=== PATIENT | female | born 1975 | race Caucasian/White ===

== ENCOUNTER → 2016-05-18 | Outpatient (CLI) | payer OTHER ==
[~2016-05-18] MED LIST: LEVO75TA5 PO; MULT-506 PO; OMEP20CA59 PO; SERT-234 PO; VITAMIN D3 PO
[2016-05-18 15:53] LABS: THYROID STIMULATING HORMONE 1.83 uIu/ml (0.300-4.500)
== END | disposition home or self-care (01) ==
LOC: C.LAB1850 14:29
PROVIDERS: ATTEND Family Medicine
DX: E03.9 Hypothyroidism, unspecified (principal); E55.9 Vitamin D deficiency, unspecified

== ENCOUNTER → 2016-08-09 | Outpatient (CLI) | payer OTHER | END | disposition home or self-care (01) | LOC: C.LABPVFM 07:56 | PROVIDERS: ATTEND Nurse Practitioner Family | DX: R39.9 Unspecified symptoms and signs involving the genitourinary system (principal) ==

== ENCOUNTER → 2016-09-20 | Outpatient (CLI) | payer BC, OTHER ==
[2016-09-20 13:20] LABS: BLOOD UREA NITROGEN 12 mg/dl (7-18); CREATININE 0.92 mg/dl (0.60-1.20); GLUCOSE 98 mg/dl (70-99)
[2016-09-20 13:21] LABS: ALT/SGPT 45 U/L (12-78); CARBON DIOXIDE 24 mmol/L (21-32); CHLORIDE 107 mmol/L (98-107); SODIUM 141 mmol/L (136-145)
[2016-09-20 13:23] LABS: CALCIUM 8.4 mg/dl (8.5-10.1)
[2016-09-20 13:31] LABS: ALKALINE PHOSPHATASE 84 U/L (45-117); AST/SGOT 25 U/L (15-37)
== END | disposition home or self-care (01) ==
LOC: C.LABPVFM 08:04
PROVIDERS: ATTEND Family Medicine
DX: E55.9 Vitamin D deficiency, unspecified (principal); E03.9 Hypothyroidism, unspecified

== ENCOUNTER → 2016-10-15 | Outpatient (CLI) | payer OTHER ==
[2016-10-15 12:40] LABS: ESTIMATED AVERAGE GLUCOSE 108 mg/dl; HA1C FLAG Normal (Normal)
== END | disposition home or self-care (01) ==
LOC: C.LAB1850 10:37
PROVIDERS: ATTEND Family Medicine
DX: N91.2 Amenorrhea, unspecified (principal); R73.02 Impaired glucose tolerance (oral)

== ENCOUNTER → 2016-11-16 | Outpatient (CLI) | payer OTHER ==
[2016-11-17 16:33] LABS: BORDETELLA PERTUSSIS SOURCE Swab
== END | disposition home or self-care (01) ==
LOC: C.LABPVFM 15:35
PROVIDERS: ATTEND Family Medicine
DX: R05 Cough (principal); Z20.818 Contact with and (suspected) exposure to other bacterial communicable diseases

== ENCOUNTER → 2016-11-23 | Outpatient (CLI) | payer OTHER ==
--- NOTE | 2016-11-23 10:54 | DIAGNOSTIC IMAGING REPORT ---
CHEST 2 VIEWS ROUTINE HISTORY: 41 years-old Female Lower resp. tract infection COMPARISON: None available TECHNIQUE: Frontal and lateral views of the chest FINDINGS: Cardiac silhouette is upper limits of normal. There is no pneumothorax or pleural effusion. Hazy subsegmental left lower lobe opacity is noted, best seen on the lateral view. Bones are grossly intact. 4 mm density near the left greater tuberosity of the humerus suggest calcific tendinosis of the rotator cuff. IMPRESSION: Subsegmental left lower lobe opacity is noted which may reflect atelectasis or developing pneumonia. The above report was generated using voice recognition software. It may contain grammatical, syntax or spelling errors. Electronically signed by: Reddy Diaz M.D. 11/23/2016 10:52 AM Dictated Date/Time: 11/23/2016 10:50 AM
== END | disposition home or self-care (01) ==
LOC: C.RADPV 10:35
PROVIDERS: ATTEND Family Medicine
DX: J22 Unspecified acute lower respiratory infection (principal)

== ENCOUNTER → 2017-01-07 | Outpatient (CLI) | payer OTHER | END | disposition home or self-care (01) | LOC: C.LABPVFM 16:56 | PROVIDERS: ATTEND Nurse Practitioner Family | DX: R39.9 Unspecified symptoms and signs involving the genitourinary system (principal) ==

== ENCOUNTER → 2017-01-26 | Outpatient (CLI) | payer OTHER ==
--- NOTE | 2017-01-27 14:32 | MAMMOGRAPHY REPORT ---
BILATERAL DIGITAL DIAGNOSTIC MAMMOGRAM TOMOSYNTHESIS WITH CAD AND BILATERAL ULTRASOUND: 01/26/2017 CLINICAL HISTORY: 41-year-old woman presents for bilateral screening mammography and also repeat bila teral breast ultrasound to reassess probably benign complicated cysts and solid versus cystic masses seen on prior breast ultrasound. Family history of breast cancer. TECHNIQUE: Bilateral breast tomosynthesis in addition to standard 2D mammography was performed. Curre nt study was also evaluated with a Computer Aided Detection (CAD) system. COMPARISON: Comparison is made to exams dated: 02/23/2016 ultrasound and 01/29/2016 mammogram - [facility]. BREAST COMPOSITION: The tissue of both breasts is heterogeneously dense, which may obscure small mas ses. FINDINGS: The parenchymal pattern is similar to prior mammograms. There is stable nodularity through out the breasts. No suspicious spiculated or irregular mass, focal area of architectural distortion, new asymmetry or new suspicious microcalcifications are seen bilaterally. Real-time high-resolution sonographic evaluation was performed throughout each breast and both axilla e. There is no suspicious right or left axillary lymphadenopathy. A few morphologically normal lymp h nodes within cortices are identified. In the 12:00 left breast periareolar region, a benign anecho ic simple cyst is again identified measuring 6.5 mm. The hypoechoic to isoechoic round subcentimeter masses no longer identified in the 1:00 left breast, 3 cm from the nipple, confirming benignity. In the 2:30 left breast, 8 cm from the nipple, 2 cysts are identified. The larger measuring 7.9 mm as a simple cyst and the smaller is a complicated cyst with internal nonvascular septations measuring 6. 2 mm. A previously observed solid versus cystic mass in the 2:00 periareolar left breast has signifi cantly decreased in size, currently measuring 2.8 mm, confirming benignity. A cyst with multiple int ernal nonvascular septations is again seen in the 6:00 left breast, 2 cm from the nipple, measuring 1 0.2 x 4.9 x 11.3 mm. Another similar-appearing predominantly anechoic cyst with internal nonvascular septations in the 8:00 left breast, 5 cm from the nipple measures 12.8 x 4.6 x 8.6 mm. Neither of t hese are significantly changed in size compared to the prior ultrasound. The previously observed cys t with septations in the 11:00 left breast, 2 cm from the nipple has decreased in size, currently ben suring 7.2 mm. In the right 12:00 axis, 2 cm from the nipple, there is a tiny oval parallel hypoechoic solid versus cystic mass measuring 4.2 mm. In the 4:00 periareolar right breast, 8 cyst with thin internal nonvas cular septations measures 10.8 x 3.4 x 6.9 mm. Numerous anechoic cysts with thin internal septations are now seen in the 7:00 right breast, 4 cm from the nipple. There is an isoechoic round circumscri bed mass and a second similar appearing small mass in the 11:00 periareolar right breast. The first measures 3.1 x 2.7 x 2.8 mm, and the second measures 2.7 mm. The slightly larger isoechoic mass is u nchanged in size and appearance but the slightly smaller mass is newly visualized. Both have a benig n appearance. Another predominantly simple cyst within internal septation is seen in the 10:00 right breast, 2 cm from the nipple, measuring 6.9 x 3.9 x 7.2 mm. Additional scanning was performed in the areas of lumpiness within both axillae, and no discrete caroline d or cystic masses are seen bilaterally in the areas of palpable concern. IMPRESSION: ACR-BI-RADS CATEGORY 3: PROBABLY BENIGN, ULTRASOUND ACR-BI-RADS CATEGORY 3: PROBABLY NICHOLAS IGN 1. Stable bilateral mammograms, without mammographic evidence of malignancy. 2. Fibrocystic changes are again evident in both breasts on whole breast screening ultrasound. Many indeterminate solid versus cystic benign appearing masses in both breasts have decreased in size com pared to the prior ultrasound, confirming benignity. A few others are newly visualized. Another 12 month follow-up targeted ultrasound is recommended in the 7:00 and 11:00 right breast to ensure longe r stability of indeterminate isoechoic solid versus cystic masses. These results and recommendations were discussed with the patient at the time of the exam. She tenta tively scheduled a follow-up appointment prior to leaving our department. Approximately 10% of breast cancers are not detected with mammography. A negative mammographic report should not delay biopsy if a clinically suggestive mass is present. Isabella Cortes M.D. ay/:01/26/2017 16:58:18 Digital Engineer: Katiana HOOD(Vinicio)(Dionne), [facility] letter sent: Follow Up Recommended 3 BI-RADS Code: ACR-BI-RADS Category 3: Probably Benign Ultrasound BI-RADS: ACR-BI-RADS Category 3: Pr obably Benign
== END | disposition home or self-care (01) ==
LOC: C.MAMM 10:55
PROVIDERS: ATTEND Family Medicine
DX: N63.0 Unspecified lump in unspecified breast (principal); Z80.3 Family history of malignant neoplasm of breast; N60.01 Solitary cyst of right breast; N60.02 Solitary cyst of left breast

== ENCOUNTER → 2017-01-31 | Outpatient (CLI) | payer OTHER ==
[2017-01-31 13:00] LABS: ALT/SGPT 59 U/L (12-78); BLOOD UREA NITROGEN 10 mg/dl (7-18); BUN/CREATININE RATIO 11.2 (10-20); CALCIUM 8.9 mg/dl (8.5-10.1); CARBON DIOXIDE 24 mmol/L (21-32); CHLORIDE 105 mmol/L (98-107); CREATININE 0.88 mg/dl (0.60-1.20); GLUCOSE 122 mg/dl (70-99); POTASSIUM 3.8 mmol/L (3.5-5.1); SODIUM 138 mmol/L (136-145)
[2017-01-31 13:11] LABS: ALB/GLOB RATIO 0.9 (0.9-2); ALKALINE PHOSPHATASE 89 U/L (45-117); AST/SGOT 28 U/L (15-37); THYROID STIMULATING HORMONE 0.137 uIu/ml (0.300-4.500)
== END | disposition home or self-care (01) ==
LOC: C.LABPVFM 07:53
PROVIDERS: ATTEND Family Medicine
DX: E03.9 Hypothyroidism, unspecified (principal); K76.0 Fatty (change of) liver, not elsewhere classified; R73.02 Impaired glucose tolerance (oral); E55.9 Vitamin D deficiency, unspecified

== ENCOUNTER 2017-05-27 22:50 | Observation (INO) | payer OTHER ==
[~2017-05-27] VITALS: Ht 160 cm; Wt 129.6 kg
[2017-05-27] MEDS ORDERED: ONDANSETRON INJ 2 MG/ML 2 ML VIAL IV STA (23:04)
[2017-05-27] MEDS ORDERED: SODIUM CHLORIDE 0.9% 1000ML 1,000 ML IV STA (23:04)
[2017-05-27] MEDS ORDERED: MoRPHine SULFATE 4 MG/ML 1 ML CARP\\VIAL IV STA (23:04)
[2017-05-27] MEDS ORDERED: LEVO100T7 PO (23:08)
[2017-05-27] MEDS ORDERED: CHOL100027 PO (23:09)
[2017-05-27] MEDS ORDERED: GLC/500 PO (23:09)
[2017-05-27] MEDS ORDERED: OPTIRAY 320 IV PRN (23:15)
[2017-05-27 23:37] LABS: BASO % 0.1 %; BASO ABS # 0.01 K/uL (0-0.2); EOS % 0.4 %; EOS ABS # 0.05 K/uL (0-0.5); HEMATOCRIT 38.1 % (37-47); HEMOGLOBIN 13.3 g/dL (12.0-16.0); IG# 0.05 K/uL (0.00-0.02); LYMPH % 19.6 %; LYMPH ABS # 2.44 K/uL (1.2-3.4); MEAN CELL VOLUME 88.6 fL (80-100); MEAN CORPUSCULAR HEMOGLOBIN 30.9 pg (25-34); MEAN CORPUSCULAR HGB CONC 34.9 g/dl (32-36); MEAN PLATELET VOLUME 9.9 fL (7.4-10.4); MONO % 4.8 %; NEUT % 74.7 %; PLATELET COUNT 169 K/uL (130-400); RED CELL DISTRIBUTION WIDTH CV 14.3 % (11.5-14.5); RED CELL DISTRIBUTION WIDTH SD 46.1 fL (36.4-46.3); WHITE BLOOD COUNT 12.45 K/uL (4.8-10.8)
[2017-05-27 23:46] LABS: ISTAT CREATININE 0.7 mg/dl (0.6-1.3); ISTAT IONIZED CALCIUM 1.14 mmol/l (1.12-1.32); ISTAT POTASSIUM 3.9 mEq/L (3.3-5.0)
[2017-05-28] VITALS (14 sets, daily range): BP systolic 95–135; BP diastolic 63–78; PULSE 68–111; TEMP 36.4–38; O2SAT 92–99; Ht 160 cm; Wt 129.6 kg
[2017-05-28 00:01] LABS: ALBUMIN 3.7 gm/dl (3.4-5.0); ALT/SGPT 143 U/L (12-78); AST/SGOT 73 U/L (15-37); BLOOD UREA NITROGEN 12 mg/dl (7-18); CALCIUM 8.8 mg/dl (8.5-10.1); CARBON DIOXIDE 24 mmol/L (21-32); CREATININE 0.86 mg/dl (0.60-1.20); GLUCOSE 126 mg/dl (70-99); LIPASE 114 U/L (73-393); POTASSIUM 3.8 mmol/L (3.5-5.1); SODIUM 137 mmol/L (136-145); TOTAL PROTEIN 7.6 gm/dl (6.4-8.2)
[2017-05-28 00:03] LABS: ALKALINE PHOSPHATASE 89 U/L (45-117)
[2017-05-28] MEDS ORDERED: MoRPHine SULFATE 4 MG/ML 1 ML CARP\\VIAL IV STA (01:01)
[2017-05-28] MEDS ORDERED: SODIUM CHLORIDE 0.9% 1000ML 1,000 ML IV STA (01:01)
[2017-05-28] MEDS ORDERED: CEFOXITIN 2000MG/60 ML D5W IV STA (01:01)
--- NOTE | 2017-05-28 01:08 | EMERGENCY ROOM VISIT NOTE ---
History First contact with patient: 22:55 Chief Complaint: ABDOMINAL PAIN Stated Complaint: UPPER ABDOMINAL PAIN INTO BACK History of Present Illness The patient is a 41 year old female who presents to the Emergency Room with complaints of epigastric pain that radiates to her left upper back after eating a salad today with blue cheese dressing. Pain started around 3:00. Described as aching, ranging in severity 8 out of 10. Nothing makes it better or worse. Patient tried baking soda and try to have a bowel movement with no improvement of symptoms. No history of similar symptoms in the past. Patient denies chest pain, dyspnea, fever, chills, vomiting, diarrhea, urinary symptoms. No diabetes. Review of Systems An 10 system review of systems was completed with positives and pertinent negatives listed in the HPI. Past Medical/Surgical History Anxiety, depression, thyroid disorder, tonsillectomy, adenoidectomy Social History Smoking Status: Never Smoker Drug Use: none Marital Status: Housing Status: lives with family Current/Historical Medications Scheduled Cholecalciferol (Vitamin D 1000 Unit), 1,000 INTER.UNIT PO DAILY Levothyroxine Sodium (Levothyroxine Sodium), 100 MCG PO DAILY Metformin Hcl (Glucophage), 1,000 MG PO BID Multivitamin (Multivitamin), 1 TAB PO QAM Sertraline (Zoloft), 100 MG PO HS Physical Exam Vital Signs Date Time Temp Pulse Resp B/P (MAP) Pulse Ox O2 Delivery O2 Flow Rate FiO2 05/27/17 23:47 88 05/27/17 23:40 94 Room Air 05/27/17 23:38 95 Room Air 05/27/17 22:52 36.8 79 18 162/101 96 Room Air Physical Exam VITALS: Vitals are noted on the nurse's note and reviewed by myself. Vital signs hypertensive GENERAL: Pleasant female, in no acute distress, nondiaphoretic, well-developed well-nourished. SKIN: The skin was without rashes, erythema, edema, or bruising. There is no tenting of the skin. Capillary reflex less than 2 seconds. HEAD: Normocephalic atraumatic. EARS: External auditory canals clear EYES: Pupils equal round and reactive to light and accommodation. Conjunctivae without injection, sclerae without icterus. Extraocular movements intact. NOSE: Patent, turbinates without inflammation or discharge. MOUTH: Mucous membranes moist. Pharynx without erythema or exudate. Uvula midline. Airway patent. Tongue does not deviate. NECK: Supple without nuchal rigidity. No lymphadenopathy. No thyromegaly. Cervical spine is nontender. No JVD. HEART: Regular rate and rhythm without murmurs gallops or rubs. LUNGS: Clear to auscultation bilaterally without wheezes, rales or rhonchi. No dullness to percussion. No retractions or accessory muscle use. ABDOMEN: Positive bowel sounds x 4. Normal tympanic percussion. Soft, protuberant, obese, tender to palpation epigastric region, without masses or organomegaly. No CVA tenderness, no guarding or rebound tenderness. MUSCULOSKELETAL: No muscle atrophy, erythema, or edema noted. NEURO: Patient was alert and oriented to person place and time. No focal neurological deficits. Medical Decision & Procedures Laboratory Results 05/27/17 23:20 Red Blood Count 4.30, Mean Corpuscular Volume 88.6, Mean Corpuscular Hemoglobin 30.9, Mean Corpuscular Hemoglobin Concent 34.9, Mean Platelet Volume 9.9, Neutrophils (%) (Auto) 74.7, Lymphocytes (%) (Auto) 19.6, Monocytes (%) (Auto) 4.8, Eosinophils (%) (Auto) 0.4, Basophils (%) (Auto) 0.1, Neutrophils # (Auto) 9.30, Lymphocytes # (Auto) 2.44, Monocytes # (Auto) 0.60, Eosinophils # (Auto) 0.05, Basophils # (Auto) 0.01 05/27/17 23:20 Test 05/27/17 23:20 05/27/17 23:30 05/27/17 23:32 05/27/17 23:34 White Blood Count 12.45 K/uL (4.8-10.8) Red Blood Count 4.30 M/uL (4.2-5.4) Hemoglobin 13.3 g/dL (12.0-16.0) Hematocrit 38.1 % (37-47) Mean Corpuscular Volume 88.6 fL (80-100) Mean Corpuscular Hemoglobin 30.9 pg (25-34) Mean Corpuscular Hemoglobin Concent 34.9 g/dl (32-36) Platelet Count 169 K/uL (130-400) Mean Platelet Volume 9.9 fL (7.4-10.4) Neutrophils (%) (Auto) 74.7 % Lymphocytes (%) (Auto) 19.6 % Monocytes (%) (Auto) 4.8 % Eosinophils (%) (Auto) 0.4 % Basophils (%) (Auto) 0.1 % Neutrophils # (Auto) 9.30 K/uL (1.4-6.5) Lymphocytes # (Auto) 2.44 K/uL (1.2-3.4) Monocytes # (Auto) 0.60 K/uL (0.11-0.59) Eosinophils # (Auto) 0.05 K/uL (0-0.5) Basophils # (Auto) 0.01 K/uL (0-0.2) RDW Standard Deviation 46.1 fL (36.4-46.3) RDW Coefficient of Variation 14.3 % (11.5-14.5) Immature Granulocyte % (Auto) 0.4 % Immature Granulocyte # (Auto) 0.05 K/uL (0.00-0.02) Est Creatinine Clear Calc Drug Dose 114.3 ml/min Estimated GFR () 97.9 Estimated GFR (Non- 84.5 BUN/Creatinine Ratio 14.4 (10-20) Calcium Level 8.8 mg/dl (8.5-10.1) Total Bilirubin 0.4 mg/dl (0.2-1) Direct Bilirubin 0.1 mg/dl (0-0.2) Aspartate Amino Transf (AST/SGOT) 73 U/L (15-37) Alanine Aminotransferase (ALT/SGPT) 143 U/L (12-78) Alkaline Phosphatase 89 U/L (45-117) Troponin I < 0.015 ng/ml (0-0.045) Total Protein 7.6 gm/dl (6.4-8.2) Albumin 3.7 gm/dl (3.4-5.0) Lipase 114 U/L (73-393) Bedside Hemoglobin 12.9 g/dl (12.0-16.0) Bedside Hematocrit 38 % (37-47) Bedside Sodium 140 mEq/L (135-144) Bedside Potassium 3.9 mEq/L (3.3-5.0) Bedside Chloride 102 mEq/L (101-112) Bedside Total CO2 24 mEq/l (24-31) Anion Gap 19.0 mmol/L (16-25) Bedside Blood Urea Nitrogen 13 mg/dl (7-18) Bedside Creatinine 0.7 mg/dl (0.6-1.3) Bedside Glucose (other) 130 mg/dl (70-99) Bedside Ionized Calcium (Nathan) 1.14 mmol/l (1.12-1.32) Bedside Troponin I < 0.030 ng/ml (0-0.045) Bedside Lactic Acid Venous 1.96 mmol/L (0.90-1.70) Medications Administered Medications (Trade) Dose Ordered Sig/Samy Route Start Time Stop Time Status Last Admin Dose Admin Morphine Sulfate (MoRPHine SULFATE INJ) 4 mg NOW STAT IV 05/27/17 23:04 05/27/17 23:07 DC 05/27/17 23:34 4 MG Ondansetron HCl (Zofran Inj) 4 mg NOW STAT IV 05/27/17 23:04 05/27/17 23:07 DC 05/27/17 23:33 4 MG Sodium Chloride 1,000 ml @ 999 mls/hr Q1H1M STAT IV 05/27/17 23:04 05/28/17 00:04 DC 05/27/17 23:33 999 MLS/HR ED Course Prior records/ancillary studies reviewed. Triage Nursing notes reviewed. Additional history obtained from family. The patient's history was concerning for abdominal pain. Differential diagnosis: Etiologies such as appendicitis, diverticulitis, PUD, biliary pathology, UTI, pancreatitis, obstruction, mesenteric ischemia, aortic pathology, infections, inflammatory bowel disease, renal colic, as well as others were entertained. Physical examination findings: As above. ER treatment provided: Morphine, Zofran On reassessment the patient felt better. Diagnostics interpreted by me: ECG: Normal sinus, normal intervals, no acute ST-T wave changes, rate of 80. Impression normal sinus rhythm interpreted by myself The labs revealed leukocytosis. Hyperglycemia without DKA Imaging studies: Chest x-ray with no acute consolidation, pneumothorax free of my interpretation CT concerning for appendicitis. Patient was reevaluated and now had pain in the right lower quadrant. Patient originally had epigastric pain. It Then localized to the periumbilical right lower quadrant region. Consultation: A consultation was placed with the surgeon, Dr. Hudson. The case was discussed and diagnostics were reviewed. The patient was admitted to her service. She gave admission orders to the nurse, John. Exam and history seem consistent with acute appendicitis. Patient was placed n.p.o. She was started on antibiotics. Maintenance fluids are written for. Patient was neurovascularly and neurologically intact. She was well-appearing. She was afebrile nontoxic. By the evaluation outlined above emergent etiologies such as diverticulitis, PUD , biliary pathology, UTI, pancreatitis, obstruction, mesenteric ischemia, aortic pathology, inflammatory bowel disease, renal colic, as well as others were deemed relatively unlikely. The pt informed about the findings as listed above. All questions were answered and pleased with the treatment. Case reviewed with my attending. The chart was completed utilizing [employer] Speech voice recognition software. Grammatical errors, random word insertions, pronoun errors, and incomplete sentences are an occassional consequence of this system due to software limitations, ambient noise, and hardware issues. Any formal questions or concerns about the content, text, or information contained within the body of this dictation should be directly addressed to the physician public relations assistant for clarification. Medical Decision As above Medication Reconcilliation Current Medication List: was personally reviewed by me Blood Pressure Screening Patient's blood pressure: Elevated blood pressure Blood pressure disposition: Elevated BP felt to be situational Impression Primary Impression: Appendicitis Departure Information Dispostion Being Evaluated By Surgeon Condition GOOD Referrals Larry Wilcox M.D. (PCP) Patient Instructions My [facility] Problem Qualifiers Primary Impression: Appendicitis Appendicitis type: acute appendicitis Acute appendicitis type: with localized peritonitis Qualified Codes: K35.3 - Acute appendicitis with localized peritonitis
[2017-05-28] MEDS ORDERED: CEFOXITIN IV 2,000 MG in DEXTROSE 5% 50ML 50 ML IV STA (01:10)
[2017-05-28] MEDS ORDERED: NURSING VERBAL MED ORDER ONE ×2 (01:15→08:00)
[2017-05-28] MEDS ORDERED: ONDANSETRON INJ 2 MG/ML 2 ML VIAL IV PRN ×2 (03:00→11:30)
[2017-05-28] MEDS: LACTATED RINGER'S 1000ML 1,000 ML IV SCH ×3 (03:15→22:09)
[2017-05-28] MEDS: MoRPHine SULFATE 2 MG/ML CARP IV PRN ×2 (03:23→05:54)
[2017-05-28] MEDS ORDERED: IV FLUIDS COMPLETED PRN (04:15)
--- NOTE | 2017-05-28 06:47 | DIAGNOSTIC IMAGING REPORT ---
CHEST ONE VIEW PORTABLE CLINICAL HISTORY: CHEST PAIN COMPARISON STUDY: Chest radiograph November 23, 2016. FINDINGS: There is mild cardiomegaly. There is pulmonary vascular congestion without overt pulmonary edema. No pneumothorax or pleural effusion is noted. There is no consolidation. IMPRESSION: Mild cardiomegaly with pulmonary vascular congestion. No overt pulmonary edema. Electronically signed by: Edy Lanier M.D. 05/28/2017 6:45 AM Dictated Date/Time: 05/28/2017 6:44 AM
--- NOTE | 2017-05-28 07:41 | DIAGNOSTIC IMAGING REPORT ---
CT OF THE ABDOMEN AND PELVIS WITH CONTRAST CLINICAL HISTORY: Severe epigastric pain. COMPARISON STUDY: Abdominal ultrasound December 17, 2014. TECHNIQUE: Following IV administration of 119 mL of Optiray-320, axial images of the abdomen and pelvis were obtained from the lung bases to the proximal femurs. Images were reviewed in the axial, sagittal, and coronal planes. IV contrast was administered without complication. A dose lowering technique was utilized adhering to the principles of ALARA. CT DOSE: 1991.94 mGy.cm FINDINGS: Fatty infiltration of the liver is noted. There is borderline splenomegaly. The adrenal glands, kidneys and pancreas are normal. There is no bowel obstruction. There is a 1.4 cm appendicolith. The appendix is dilated, measuring 1.5 cm in caliber. There is mild periappendiceal infiltration. There is no periappendiceal abscess. There is no free air. There is no lymphadenopathy. Pelvic calcifications reflect phlebolith. IMPRESSION: 1. Findings consistent with acute appendicitis. Appendicolith with moderate appendiceal dilatation and minimal periappendiceal infiltration. 2. Fatty infiltration of the liver. Electronically signed by: Edy Lanier M.D. 05/28/2017 7:39 AM Dictated Date/Time: 05/28/2017 7:36 AM
--- NOTE | 2017-05-28 08:01 | History and Physical ---
History & Physical Date & Time of Service: May 28, 2017 at 07:55 Chief Complaint: Appendicitis Primary Care Physician: Larry Wilcox M.D. History of Present Illness Source: patient 41 yr old woman with BMI 50.6 who presents to ER complaining of abdominal pain which started Tuesday afternoon after eating salad with blue cheese. Pain was initially epigastric, has now migrated to right lower quadrant, 8/10 in severity , radiates throughout abdomen, worse with movement, minimal relief after morphine, associated with nausea and dry heaves. Last meal was 3 pm Tuesday. No prior similar episodes. No fevers now but did have some fevers/ chills/ cough a few weeks ago around the time of . Was treated with cough medicine at that time. Past Medical/Surgical History anxiety, depression, thyroid issues s/p C sxn, tonsillectomy and adenoidectomy Family History nothing significant, no early heart disease, no diabetes Social History Smoking Status: Never Smoker Drug Use: none Marital Status: Multi-Drug Resistant Organisms History of MDRO: No Allergies Coded Allergies: Sulfa Drugs (Verified Allergy, Unknown, 05/27/17) Home Medications Scheduled Cholecalciferol (Vitamin D 1000 Unit), 1,000 INTER.UNIT PO DAILY Levothyroxine Sodium (Levothyroxine Sodium), 100 MCG PO DAILY Metformin Hcl (Glucophage), 1,000 MG PO BID Multivitamin (Multivitamin), 1 TAB PO QAM Sertraline (Zoloft), 100 MG PO HS Review of Systems Constitutional: + fever, + chills (around early May) Eyes: No problem reported ENT: No problem reported Respiratory: No problem reported Cardiovascular: No problem reported Abdomen: + pain, + nausea Musculoskeletal: No problem reported Genitourinary - Female: No problem reported Neurologic: No problem reported Psychiatric: No problem reported Endocrine: No problem reported Hematologic / Lymphatic: No problem reported Integumentary: No problem reported Allergic / Immunologic: No problem reported Physical Exam Vital Signs Date Time Temp Pulse Resp B/P (MAP) Pulse Ox O2 Delivery O2 Flow Rate FiO2 05/28/17 07:08 36.9 98 17 132/78 (96) 94 Room Air 05/28/17 02:40 Room Air 05/28/17 02:30 36.9 68 18 130/73 (92) 99 Room Air 05/28/17 02:25 36.8 97 18 63 93 05/28/17 02:12 97 / 93 Room Air 05/28/17 02:10 36.8 72 18 / Room Air 05/27/17 23:47 88 05/27/17 23:40 94 Room Air 05/27/17 23:38 95 Room Air 05/27/17 22:52 36.8 79 18 162/101 96 Room Air General Appearance: WD/WN, no apparent distress Head: normocephalic, atraumatic Eyes: normal inspection, PERRL ENT: hearing grossly normal Neck: supple, trachea midline Respiratory/Chest: lungs clear, normal breath sounds, no respiratory distress Cardiovascular: regular rate, rhythm, no murmur Abdomen/GI: normal bowel sounds, soft, + tenderness (diffuse but worse in right lower quadrant) Back: normal inspection Extremities/Musculoskelatal: normal inspection, no pedal edema Neurologic/Psych: alert, normal mood/affect, oriented x 3 Skin: normal color, warm/dry Diagnostics Laboratory Results Results Past 24 Hours Test 05/27/17 23:20 05/27/17 23:30 05/27/17 23:32 05/27/17 23:34 Range/Units White Blood Count 12.45 4.8-10.8 K/uL Red Blood Count 4.30 4.2-5.4 M/uL Hemoglobin 13.3 12.0-16.0 g/dL Hematocrit 38.1 37-47 % Mean Corpuscular Volume 88.6 80-100 fL Mean Corpuscular Hemoglobin 30.9 25-34 pg Mean Corpuscular Hemoglobin Concent 34.9 32-36 g/dl Platelet Count 169 130-400 K/uL Mean Platelet Volume 9.9 7.4-10.4 fL Neutrophils (%) (Auto) 74.7 % Lymphocytes (%) (Auto) 19.6 % Monocytes (%) (Auto) 4.8 % Eosinophils (%) (Auto) 0.4 % Basophils (%) (Auto) 0.1 % Neutrophils # (Auto) 9.30 1.4-6.5 K/uL Lymphocytes # (Auto) 2.44 1.2-3.4 K/uL Monocytes # (Auto) 0.60 0.11-0.59 K/uL Eosinophils # (Auto) 0.05 0-0.5 K/uL Basophils # (Auto) 0.01 0-0.2 K/uL RDW Standard Deviation 46.1 36.4-46.3 fL RDW Coefficient of Variation 14.3 11.5-14.5 % Immature Granulocyte % (Auto) 0.4 % Immature Granulocyte # (Auto) 0.05 0.00-0.02 K/uL Sodium Level 137 136-145 mmol/L Potassium Level 3.8 3.5-5.1 mmol/L Chloride Level 104 98-107 mmol/L Carbon Dioxide Level 24 21-32 mmol/L Anion Gap 9.0 19.0 16-25 mmol/L Blood Urea Nitrogen 12 7-18 mg/dl Creatinine 0.86 0.60-1.20 mg/dl Est Creatinine Clear Calc Drug Dose 114.3 ml/min Estimated GFR () 97.9 Estimated GFR (Non- 84.5 BUN/Creatinine Ratio 14.4 10-20 Random Glucose 126 70-99 mg/dl Calcium Level 8.8 8.5-10.1 mg/dl Total Bilirubin 0.4 0.2-1 mg/dl Direct Bilirubin 0.1 0-0.2 mg/dl Aspartate Amino Transf (AST/SGOT) 73 15-37 U/L Alanine Aminotransferase (ALT/SGPT) 143 12-78 U/L Alkaline Phosphatase 89 45-117 U/L Troponin I < 0.015 0-0.045 ng/ml Total Protein 7.6 6.4-8.2 gm/dl Albumin 3.7 3.4-5.0 gm/dl Lipase 114 73-393 U/L Bedside Hemoglobin 12.9 12.0-16.0 g/dl Bedside Hematocrit 38 37-47 % Bedside Sodium 140 135-144 mEq/L Bedside Potassium 3.9 3.3-5.0 mEq/L Bedside Chloride 102 101-112 mEq/L Bedside Total CO2 24 24-31 mEq/l Bedside Blood Urea Nitrogen 13 7-18 mg/dl Bedside Creatinine 0.7 0.6-1.3 mg/dl Bedside Glucose (other) 130 70-99 mg/dl Bedside Ionized Calcium (Nathan) 1.14 1.12-1.32 mmol/l Bedside Troponin I < 0.030 0-0.045 ng/ml Bedside Lactic Acid Venous 1.96 0.90-1.70 mmol/L Diagnostic Radiology CT scan shows dilated appendix with periappendiceal inflammation and appendicolith c/w acute appendicitis. Impression Assessment and Plan 41 yr old woman with BMI 50.6 and acute appendicitis. Discussed laparoscopic appendectomy with risks of bleeding, infection, conversion to open, postop ileus / abscess, negative appy. Consent signed. For OR today. Advanced Directives Existing Living Will: No Existing Power of Licensed Optician: No VTE Prophylaxis VTE Risk Assessment Done? Y/N: Yes Risk Level: Low
[2017-05-28] MEDS: HYDROmorphone INJ 1 MG/ML SYR IV PRN ×3 (08:34→19:35)
[2017-05-28] MEDS: CEFOXITIN IV 2,000 MG in DEXTROSE 5% 50ML 50 ML IV SCH ×3 (08:34→19:21)
[2017-05-28] MEDS ORDERED: SUCCINYLCHOLINE CHLORIDE 20 MG/ML 10 ML VIAL IV ONE (10:48)
[2017-05-28] MEDS ORDERED: LIDOCAINE HCL 2% 2 ML VIAL (20MG/ML) ONE ×2 (10:49)
[2017-05-28] MEDS ORDERED: PROPOFOL IV EMULSION 10 MG/ML 20 ML VIAL IV ONE (10:49)
[2017-05-28] MEDS ORDERED: PROMETHAZINE HCL INJ 12.5 MG in SODIUM CHLORIDE 0.9% 50ML 50 ML IV PRN (11:30)
[2017-05-28] MEDS ORDERED: EpHEDrine SULFATE INJ 50 MG/ML AMP IV PRN (11:30)
[2017-05-28] MEDS ORDERED: FENTANYL CITRATE INJ 50 MCG/1 ML 2 ML VIAL IV PRN (11:30)
[2017-05-28] MEDS ORDERED: HYDROmorphone INJ 0.5 MG/0.5 ML SYR IV PRN (11:30)
[2017-05-28] MEDS ORDERED: ATROPINE SULFATE 0.1 MG/ML 5ML SYR IV PRN (11:30)
[2017-05-28] MEDS ORDERED: DEXAMETHASONE SOD INJ 4 MG/ML VIAL ONE (11:48)
[2017-05-28] MEDS ORDERED: MIDAZOLAM HCL 1 MG/ML 2ML VIAL ONE (11:48)
[2017-05-28] MEDS ORDERED: FENTANYL CITRATE INJ 50 MCG/1 ML 2 ML VIAL ONE (11:48)
[2017-05-28] MEDS ORDERED: ONDANSETRON INJ 2 MG/ML 2 ML VIAL ONE (11:48)
[2017-05-28] MEDS ORDERED: BUPIVACAINE 0.5 % 5 MG/1 ML MPF 30ML VIAL ONE (12:12)
[2017-05-28] MEDS ORDERED: CEFOXITIN SOD 1 GM VIAL ONE (12:38)
[2017-05-28] MEDS ORDERED: ROCURONIUM BROMIDE 10 MG/ML 5 ML VIAL IV ONE (12:41)
[2017-05-28] MEDS ORDERED: NEOSTIGMINE METHYLSULFATE 5 MG/5 ML SYR ONE (13:01)
[2017-05-28] MEDS ORDERED: GLYCOPYRROLATE INJ 0.2 MG/ML VIAL ONE (13:01)
--- NOTE | 2017-05-28 13:20 | [facility] Operative Report ---
Operative Report Operative Date May 28, 2017. Pre-Operative Diagnosis Acute Appendicitis Post-Operative Diagnosis Acute Appendicitis Procedure(s) Performed Laparoscopic Appendectomy Surgeon Dr. Abi Hudson M.D. Guest Laundry Attendant Surgeon(s) None Estimated Blood Loss 15ML Findings acute appendicitis with dilated appendix and very thickened mesentary Fluids 1000 cc Specimens A. Appendix Drains None Anesthesia Type General Complication(s) none Disposition Recovery Room / PACU Indications 41 year old woman with BMI of 50 who presented with acute appendicitis. Consent signed for lap appendectomy. Description of Procedure The patient was on mefoxin preoperatively. After the placement of SCD's, she underwent the induction of GET. A melo catheter was placed. Her left arm was tucked and her abdomen was prepped and draped. She was placed in trendelenburg. A supraumbilical incision was made and carried down to the fascia which was grasped with priscilla clamps. A veress needle was placed into the peritoneal cavity and tested with the saline drop test. Initial pressure was 9 mm Hg and this was taken to 15 mm Hg. A 5 mm trocar was placed. The gallbladder appeared normal. Two additional trocars were placed - a 5 mm in the left lower quadrant and a 5 mm in the midline pubic area (latter used her C sxn incision). The trocar at the umbilicus was changed to a 12 mm. The appendix was visualized and had significant inflammatory changes and a very thickened mesentary. The base was clear and was divided off the cecum with the purple load of the 45 mm stapler. The appendiceal mesentery was taken with 3 sequential firings of the CARLOS stapler vascular load. There was a small arterial bleeder on the staple line which was clamped, clipped and cauterized. There was evidence of a small hematoma in the remaining mesentery to the appendix. The appendix was placed in an endocatch and removed through the umbilical incision. The area was irrigated and suctioned clear. No further bleeding was noted. The trocars were removed. Pneumoperitoneum was released. 30 cc of 0.5% marcaine was injected as local anesthesia. The fascia of the umbilicus was closed with interrupted 0 vicryl sutures. The skin of all three incisions were closed with running subcuticular 4 -0 vicryl suture. Steristrips and sterile dressing were applied. She was awakened and taken to recovery in stable condition. I attest to the content of the Intraoperative Record and any orders documented therein. Any exceptions are noted below.
--- NOTE | 2017-05-28 13:29 | [facility] Post Operative Brief Note ---
Immediate Operative Summary Operative Date May 28, 2017. Pre-Operative Diagnosis Acute Appendicitis Post-Operative Diagnosis Acute Appendicitis Procedure(s) Performed Laparoscopic Appendectomy Surgeon Dr. Abi Hudson M.D. Counter Clerk [employer] Surgeon(s) None Estimated Blood Loss 15ML Findings Consistent with Post-Op Diagnosis Fluids (cc crystalloids) 1000 cc Specimens A. Appendix Anesthesia Type General Complication(s) none Disposition Accompanied Pt To Recover: yes Disposition: Recovery Room / PACU
[2017-05-28] MEDS ORDERED: OXYC-57 PO (13:32)
[2017-05-28] MEDS ORDERED: AMOX875T PO (13:32)
--- NOTE | 2017-05-28 13:34 | Discharge Instructions ---
Discharge Instructions Date of Service May 28, 2017. Admission Reason for Admission: Appendicitis Discharge Discharge Diagnosis / Problem: s/p laparoscopic appendectomy Discharge Goals Goal(s): Decrease discomfort Activity Recommendations Activity Limitations: resume your previous activity (walking/ stairs OK) Lifting Limitations: no more than 10 pounds (for 2 wks) Exercise/Sports Limitations: gradually increase as tolerated May Resume Sexual Activity: after two weeks Shower/Bathe: tomorrow (remove outer gauze bandages prior to shower) Driving or Machine Use: resume 3 days after discharge (if off of narcotic pain medications) . Current Hospital Diet Patient's current hospital diet: Clear Liquid Diet Discharge Diet Recommended Diet: Regular Diet Procedures Procedures Performed: Laparoscopic Appendectomy Pending Studies Studies pending at discharge: yes List of pending studies: pathology from appendix Medical Emergencies . Who to Call and When: Medical Emergencies: If at any time you feel your situation is an emergency, please call 911 immediately. . Non-Emergent Contact Non-Emergency issues call your: Surgeon ([phone]) Call Non-Emergent contact if: temperature is above 101.5, your pain is not controlled, your pain is worsening, your pain is unusual for you, your pain is concerning you, wound has increased drainage, wound has increased redness, wound has increased pain, you have any medication questions . "Provider Documentation" section prepared by Abi Hudson. . VTE Core Measure Inpt VTE Proph given/why not?: Enoxaparin (Lovenox)SQ, SCD's [place] Drug Monitoring Program Search Results: patient reviewed within database, no issues identified
--- NOTE | 2017-05-28 13:55 | Anesthesiology Progress Note ---
Anesthesia Post Op Note Date & Time May 28, 2017 at 13:55 Vital Signs Pain Intensity: 0 Vital Signs Past 12 Hours Date Time Temp Pulse Resp B/P (MAP) Pulse Ox O2 Delivery O2 Flow Rate FiO2 05/28/17 13:50 93 16 122/84 94 Nasal Cannula 4 05/28/17 13:40 92 16 122/86 93 Oxymask 10 05/28/17 13:30 94 16 122/86 93 Oxymask 10 05/28/17 13:23 36.8 98 16 121/78 92 Oxymask 10 05/28/17 08:00 Room Air 05/28/17 07:08 36.9 98 17 132/78 (96) 94 Room Air 05/28/17 02:40 Room Air 05/28/17 02:30 36.9 68 18 130/73 (92) 99 Room Air 05/28/17 02:25 36.8 97 18 95/63 93 05/28/17 02:12 97 95/63 93 Room Air 05/28/17 02:10 36.8 72 18 95/63 Room Air Notes Mental Status: alert / awake / arousable, participated in evaluation Pt Amnestic to Procedure: Yes Nausea / Vomiting: adequately controlled Pain: adequately controlled Airway Patency, RR, SpO2: stable & adequate BP & HR: stable & adequate Hydration State: stable & adequate Anesthetic Complications: no major complications apparent
[2017-05-28 14:59] LABS: INR 0.9 (0.9-1.1); PTT PATIENT 25.1 SECONDS (21.0-31.0)
[2017-05-28] MEDS: ACETAMINOPHEN 325 MG TAB PO PRN ×2 (17:49→23:35)
[2017-05-28] MEDS: SERTRALINE HCL 100 MG TAB PO SCH (19:21)
[2017-05-29] MEDS: CEFOXITIN IV 2,000 MG in DEXTROSE 5% 50ML 50 ML IV SCH (01:54)
[2017-05-29] MEDS: HYDROmorphone INJ 1 MG/ML SYR IV PRN ×2 (02:13→12:59)
[2017-05-29 03:53] VITALS: BP 105/65; PULSE 90; TEMP 36.8; O2SAT 92
[2017-05-29] MEDS: LEVOTHYROXINE 100 MCG TAB PO SCH (05:19)
[2017-05-29] MEDS: ACETAMINOPHEN 325 MG TAB PO PRN (05:34)
[2017-05-29 07:01] VITALS: BP 108/70; PULSE 89; TEMP 36.6; O2SAT 91
[2017-05-29] MEDS: MULTIVITAMIN TAB PO SCH (08:57)
[2017-05-29] MEDS: CHOLECALCIFEROL 1000 INTER.UNIT TAB PO SCH (08:57)
[2017-05-29] MEDS: METFORMIN HCL 500 MG TAB PO SCH ×2 (08:58→17:20)
[2017-05-29] MEDS: ENOXAPARIN 40 MG/0.4 ML SYR SQ SCH (08:59)
[2017-05-29] MEDS: LACTATED RINGER'S 1000ML 1,000 ML IV SCH ×2 (09:03→19:16)
--- NOTE | 2017-05-29 09:10 | Surgery Progress Note ---
Surgery Progress Note Date of Service May 29, 2017. Subjective Post OP Day: 1 + feeling well, + complaints (pain), + nausea, + diet (liquids), No bowel movement, No flatus, No vomiting Objective Vital Signs: Date Time Temp Pulse Resp B/P (MAP) Pulse Ox O2 Delivery O2 Flow Rate FiO2 05/29/17 07:01 36.6 89 18 108/70 (83) 91 Room Air 05/29/17 03:53 36.8 90 18 105/65 (78) 92 Room Air 05/28/17 23:30 Room Air 05/28/17 22:55 36.9 102 18 125/67 (86) 92 Room Air 05/28/17 20:01 37.4 100 18 125/66 (85) 93 Room Air 05/28/17 19:27 36.8 05/28/17 17:55 37.2 05/28/17 17:42 38.0 05/28/17 17:41 37.1 102 18 131/66 (87) 94 Nasal Cannula 2.0 05/28/17 16:24 36.7 107 18 115/67 (83) 95 Nasal Cannula 2.0 05/28/17 16:00 95 Nasal Cannula 2.0 05/28/17 15:24 36.9 111 18 130/76 (94) 94 Nasal Cannula 2.0 05/28/17 14:50 36.4 95 18 135/75 (95) 97 Nasal Cannula 2.0 05/28/17 14:20 97 Nasal Cannula 2.0 05/28/17 14:20 37.2 101 18 132/78 (96) 97 Nasal Cannula 2.0 05/28/17 14:00 36.4 96 16 124/87 94 Nasal Cannula 4 05/28/17 13:50 93 16 122/84 94 Nasal Cannula 4 05/28/17 13:40 92 16 122/86 93 Oxymask 10 05/28/17 13:30 94 16 122/86 93 Oxymask 10 05/28/17 13:23 36.8 98 16 121/78 92 Oxymask 10 General Appearance: WD/WN, no apparent distress Head: normocephalic, atraumatic Neck: supple, trachea midline Respiratory/Chest: chest non-tender, lungs clear Cardiovascular: regular rate, rhythm, no gallop, no murmur Abdomen: non distended, soft, + abnormal bowel sounds (queit), + tenderness Incision(s): clean, dry, intact Extremities: non-tender, no pedal edema Laboratory Results: Results Past 24 Hours Test 05/28/17 10:40 05/28/17 14:41 Range/Units Urine Test NEG NEG Prothrombin Time 9.9 9.0-12.0 SECONDS Prothromb Time International Ratio 0.9 0.9-1.1 Activated Partial Thromboplast Time 25.1 21.0-31.0 SECONDS Partial Thromboplastin Ratio 1.0 Assessment & Plan s/p appendectomy -no flatus -requiring IV pain meds -poor ambulation -will encourage activity hopefully home in AM
[2017-05-29] MEDS: OXYCODONE/ACETAMINOPHEN 5-325 TAB PO PRN ×3 (09:29→18:00)
[2017-05-29] MEDS: AMOXICILLIN/CLAVULANATE TAB 875 MG TAB PO SCH ×2 (10:23→17:13)
[2017-05-29 14:58] VITALS: BP 127/55; PULSE 88; TEMP 36.7; O2SAT 92
[2017-05-29] MEDS ORDERED: NURSING VERBAL MED ORDER ONE (17:30)
[2017-05-29] MEDS: SERTRALINE HCL 100 MG TAB PO SCH (20:39)
[2017-05-29 23:32] VITALS: BP 156/76; PULSE 83; TEMP 36.7; O2SAT 92
[2017-05-30] MEDS ORDERED: COUGH DROP (SUGAR FREE) LOZ 24 LOZ/1 BOX LOZ ONE (00:22)
[2017-05-30] MEDS: OXYCODONE/ACETAMINOPHEN 5-325 TAB PO PRN ×4 (00:24→14:53)
[2017-05-30] MEDS ORDERED: COUGH DROP (SUGAR FREE) LOZ 24 LOZ/1 BOX LOZ PRN (00:30)
[2017-05-30] MEDS: LACTATED RINGER'S 1000ML 1,000 ML IV SCH (04:19)
[2017-05-30] MEDS: LEVOTHYROXINE 100 MCG TAB PO SCH (06:36)
[2017-05-30 07:25] VITALS: O2SAT 92
[2017-05-30 07:48] VITALS: BP 160/88; PULSE 91; TEMP 36.7; O2SAT 94
[2017-05-30 08:25] VITALS: O2SAT 94
[2017-05-30] MEDS: CHOLECALCIFEROL 1000 INTER.UNIT TAB PO SCH (08:59)
[2017-05-30] MEDS: MULTIVITAMIN TAB PO SCH (08:59)
[2017-05-30] MEDS: AMOXICILLIN/CLAVULANATE TAB 875 MG TAB PO SCH (09:00)
[2017-05-30] MEDS ORDERED: METFORMIN HCL 500 MG TAB PO SCH (09:00)
[2017-05-30] MEDS: ENOXAPARIN 40 MG/0.4 ML SYR SQ SCH (09:00)
[2017-05-30 11:39] VITALS: BP 134/86; PULSE 80; TEMP 36.6; O2SAT 94
--- NOTE | 2017-05-30 13:57 | Surgery Progress Note ---
Surgery Progress Note Date of Service May 30, 2017. Subjective Post OP Day: 2 + feeling well, + diet (tolerated regular diet), No bowel movement, No nausea, No vomiting Objective Vital Signs: Date Time Temp Pulse Resp B/P (MAP) Pulse Ox O2 Delivery O2 Flow Rate FiO2 05/30/17 11:39 36.6 80 20 134/86 (102) 94 Room Air 05/30/17 08:25 94 Room Air 05/30/17 07:48 36.7 91 18 160/88 (112) 94 Room Air 05/30/17 07:25 92 Room Air 05/30/17 00:15 Room Air 05/29/17 23:32 36.7 83 18 156/76 (102) 92 Room Air 05/29/17 15:15 Room Air 05/29/17 14:58 36.7 88 20 127/55 (79) 92 Room Air Abdomen: non distended, soft Incision(s): clean, dry, intact, no erythema Assessment & Plan S/P laparoscopic appendectomy Doing well Can D/C to home' Discussed restrictions No bm as yet, took prune juice, recommended MOM if no bm by tomorrow
[2017-05-30 14:18] VITALS: BP 134/86; PULSE 80; TEMP 36.6; O2SAT 94
--- NOTE | 2017-06-01 14:34 | Discharge Summary ---
Discharge Summary Dates Admission Date / Time: May 28, 2017 at 01:12 Discharge Date: May 30, 2017 Dispostion / Condition Discharge Disposition: Home Condition at Discharge: Good Principal Diagnosis (1) Acute appendicitis Problem List (1) Morbid obesity (2) Anxiety (3) Depression (4) Hypothyroidism (5) Diabetes Consultations / Procedures Consultations: None Procedures: Laparoscopic appendectomy Vaccinations: None Pending Studies / Follow-Up Appendix pathology will be reviewed at follow-up visit Medication Reconciliation New Medications: Amoxicillin & Pot Clavulanate (Augmentin 875-125 mg) 1 Tab Tab 875 MG PO BID, #14 TAB Oxycodone/Acetaminophen 5MG/325MG (Percocet 5MG/325MG) Tab 1-2 TABLETS PO Q4H PRN for Pain, #30 TAB Continued Medications: Cholecalciferol (Vitamin D 1000 Unit) 1,000 Unit Cap 1000 INTER.UNIT PO DAILY, CAP Levothyroxine Sodium (Levothyroxine Sodium) 100 Mcg Tab 100 MCG PO DAILY, 3 Refills Metformin Hcl (Glucophage) 500 Mg Tab 1000 MG PO BID, TAB Multivitamin (Multivitamin) Tab 1 TAB PO QAM, TAB Sertraline (Zoloft) 100 Mg Tab 100 MG PO HS, TAB Admission HPI Per the Admitting provider: 41 yr old woman with BMI 50.6 who presents to ER complaining of abdominal pain which started Tuesday afternoon after eating salad with blue cheese. Pain was initially epigastric, has now migrated to right lower quadrant, 8/10 in severity , radiates throughout abdomen, worse with movement, minimal relief after morphine, associated with nausea and dry heaves. Last meal was 3 pm Tuesday. No prior similar episodes. No fevers now but did have some fevers/ chills/ cough a few weeks ago around the time of . Was treated with cough medicine at that time. Admission Exam Per the Admitting provider: General Appearance: WD/WN, no apparent distress Head: normocephalic, atraumatic Eyes: normal inspection, PERRL ENT: hearing grossly normal Neck: supple, trachea midline Respiratory/Chest: lungs clear, normal breath sounds, no respiratory distress Cardiovascular: regular rate, rhythm, no murmur Abdomen/GI: normal bowel sounds, soft, + tenderness (diffuse but worse in right lower quadrant) Back: normal inspection Extremities/Musculoskelatal: normal inspection, no pedal edema Neurologic/Psych: alert, normal mood/affect, oriented x 3 Skin: normal color, warm/dry Hospital Course (1) Acute appendicitis Patient was taken to operating room for laparoscopic appendectomy possible open by Dr. Hudson. Patient was found to have acute appendicitis without perforation or abscess. Patient tolerated procedure well without any complications. Was transferred to recovery room and then to medical/surgical floor in stable condition. Post-op orders included IV fluids, PO Percocet with breakthrough IV morphine as needed for pain, clear liquid diet, activity as tolerated, IV Zofran as needed for nausea, and post op antibiotic IV cefoxitin. ON POD #1 patient was evaluated. Vitals signs stable, afebrile, tolerating clear liquid diet, ambulating, urinating without difficulty, and pain controlled with IV pain medication. Diet was advanced as tolerated. Patient was only receiving IV pain medication therefore she was kept overnight for further pain management. On postop day #2 patient was doing well tolerating regular diet. Vital signs stable. Pain controlled. No return of bowel function as of yet. Patient was discharged home on POD #2 in stable condition. Overall hospital course was uneventful. Patient was discharged home with oral Percocet as needed for pain and oral Augmentin. Discharge Instructions As given to patient Copies To Primary Care Provider: Larry Wilcox M.D..
== END 2017-05-30 15:12 | disposition home or self-care (01) ==
LOC: C.EDB 22:51 → C.MSW 05-28 01:12 → ENRESERV 05-28 01:33
PROVIDERS: ADMIT Surgery; ATTEND Surgery
DX: K35.80 Unspecified acute appendicitis (principal); F41.9 Anxiety disorder, unspecified; F32.9 Major depressive disorder, single episode, unspecified; E07.9 Disorder of thyroid, unspecified; Z79.84 Long term (current) use of oral hypoglycemic drugs; Z79.899 Other long term (current) drug therapy

== ENCOUNTER → 2017-07-29 | Outpatient (CLI) | payer OTHER ==
[~2017-07-29] MED LIST changes: +CHOL100027 PO; +GLC/500 PO; +LEVO100T7 PO; -LEVO75TA5 PO; -OMEP20CA59 PO; +OXYC-57 PO; -VITAMIN D3 PO
== END | disposition home or self-care (01) ==
LOC: C.LABPVFM 07:53
PROVIDERS: ATTEND Family Medicine
DX: R53.83 Other fatigue (principal); R94.6 Abnormal results of thyroid function studies; E88.81 Metabolic syndrome and other insulin resistance

== ENCOUNTER → 2017-11-01 | Outpatient (CLI) | payer OTHER ==
--- NOTE | 2017-11-01 09:07 | DIAGNOSTIC IMAGING REPORT ---
CHEST 2 VIEWS ROUTINE CLINICAL HISTORY: E66.01, Z68.42 PREOPERATIVE CHEST COMPARISON STUDY: 05/27/2017 FINDINGS: The cardiac and mediastinal contours are normal. There is no evidence of focal pulmonary consolidation. There is no evidence of failure. No pleural effusions are visualized.[ IMPRESSION: No active disease in the chest. Electronically signed by: Dilshad Mclean M.D. 11/01/2017 9:06 AM Dictated Date/Time: 11/01/2017 9:03 AM
== END | disposition home or self-care (01) ==
LOC: C.RAD 08:27
PROVIDERS: ATTEND Surgery
DX: E66.01 Morbid (severe) obesity due to excess calories (principal); Z68.42 Body mass index [BMI] 45.0-49.9, adult; E11.9 Type 2 diabetes mellitus without complications

== ENCOUNTER → 2017-11-02 | Outpatient (CLI) | payer OTHER ==
[2017-11-02 12:58] LABS: BASO % 0.1 %; BASO ABS # 0.01 K/uL (0-0.2); EOS % 1.9 %; EOS ABS # 0.13 K/uL (0-0.5); HEMATOCRIT 39.1 % (37-47); IG# 0.01 K/uL (0.00-0.02); LYMPH % 38.2 %; LYMPH ABS # 2.62 K/uL (1.2-3.4); MEAN CELL VOLUME 89.5 fL (80-100); MEAN CORPUSCULAR HEMOGLOBIN 29.7 pg (25-34); MEAN CORPUSCULAR HGB CONC 33.2 g/dl (32-36); MEAN PLATELET VOLUME 10.5 fL (7.4-10.4); MONO % 4.2 %; MONO ABS # 0.29 K/uL (0.11-0.59); NEUT % 55.5 %; PLATELET COUNT 203 K/uL (130-400); RED CELL DISTRIBUTION WIDTH CV 14.4 % (11.5-14.5); RED CELL DISTRIBUTION WIDTH SD 47.3 fL (36.4-46.3); WHITE BLOOD COUNT 6.86 K/uL (4.8-10.8)
[2017-11-02 13:12] LABS: INR 0.9 (0.9-1.1); PTT PATIENT 26.2 SECONDS (21.0-31.0)
[2017-11-02 13:28] LABS: ALBUMIN 3.7 gm/dl (3.4-5.0); ALKALINE PHOSPHATASE 81 U/L (45-117); ALT/SGPT 85 U/L (12-78); AST/SGOT 42 U/L (15-37); BLOOD UREA NITROGEN 11 mg/dl (7-18); CALCIUM 8.6 mg/dl (8.5-10.1); CARBON DIOXIDE 24 mmol/L (21-32); GLUCOSE 98 mg/dl (70-99); POTASSIUM 3.9 mmol/L (3.5-5.1); SODIUM 139 mmol/L (136-145); TOTAL PROTEIN 7.2 gm/dl (6.4-8.2)
[2017-11-02 13:56] LABS: HEMOGLOBIN A1C 5.6 % (4.5-5.6)
== END | disposition home or self-care (01) ==
LOC: C.LABPVFM 07:54
PROVIDERS: ATTEND Surgery
DX: E66.01 Morbid (severe) obesity due to excess calories (principal); Z68.42 Body mass index [BMI] 45.0-49.9, adult; E11.9 Type 2 diabetes mellitus without complications; R94.6 Abnormal results of thyroid function studies